=== PATIENT | female | born 1950 | race Caucasian/White ===

== ENCOUNTER → 2020-02-17 08:27 | Outpatient (REF) | payer OTHER, SELFPAY | LOC: ANHLAB 08:27 | PROVIDERS: Visit Provider Nurse Practitioner Family | DX: C44.311 Basal cell carcinoma of skin of nose (principal) | CPT/HCPCS: 88305; 88331 ==

== ENCOUNTER 2021-02-01 09:33 | Outpatient (CLI) | payer OTHER, SELFPAY ==
--- NOTE | ~2021-02-01 | MM_ITS ---
EXAMINATION: MM screening corona BI w angela HISTORY: Screening mammogram TECHNIQUE: Craniocaudal and mediolateral oblique 3-D tomosynthesis images were obtained and synthetic 2-D images were generated. CAD analysis was submitted and interpreted. COMPARISON: No prior mammogram is available for comparison at this institution. BREAST PARENCHYMAL COMPOSITION: There are scattered areas of fibroglandular density. FINDINGS: There is no evidence of suspicious mass, calcification, or architectural distortion to sugg est malignancy in either breast. There has been no suspicious interval change. IMPRESSION: 1. No mammographic evidence of malignancy. 2. Recommend routine screening mammography in one year. BI-RADS Category 1: Negative Reviewed, dictated and finalized at location A.
== END 2021-02-01 09:34 | disposition home or self-care (01) ==
LOC: ANHIMG 09:40
DX: Z12.31 Encounter for screening mammogram for malignant neoplasm of breast (principal)
CPT/HCPCS: 77063; 77067

== ENCOUNTER 2021-02-17 02:33 | Day surgery (SDC) | payer OTHER, SELFPAY ==
[2021-02-08 13:16] VITALS: BMI 32.1
--- NOTE | 2021-02-17 07:09 | PM.HPGS ---
History of Present Illness History of Present Illness Consent: Risks, benefits, and alternatives have been discussed and questions answered. Patient agrees to proceed with procedure. Chief complaint: neoplasm screening Narrative: Ludy Paulino is a 70 year old female referred for colon cancer screening Review of Systems Review of Systems: All systems reviewed & are unremarkable except as noted in HPI and below PMFSH Past Medical History Medical History Coronary artery disease Hyperlipidemia Hypertension Hypothyroid Osteoarthritis Surgical History Surgical History Stented coronary artery Family History Family History Father Cerebrovascular accident Lung cancer Mother Lung cancer Social History Social History Smoking status: Never smoker Alcohol intake: current Alcohol use details: socially Substance use: never Substance use type: does not use Living arrangements: alone Gender identity (if verbalized by the patient): Female Spiritual care concerns: No Meds Home Medications and Allergies Home Medications Medication Instructions Recorded Confirmed Type Vitamin D 50,000 units PO WEEKLY 02/17/20 02/17/21 History amlodipine 5 mg tablet 5 mg PO DAILY 02/17/20 02/17/21 History aspirin 81 mg tablet,delayed 81 mg PO DAILY 02/17/20 02/17/21 History release atorvastatin 40 mg tablet 40 mg PO DAILY 02/17/20 02/17/21 History docusate sodium 50 mg capsule 50 mg PO DAILY 02/17/20 02/17/21 History levothyroxine 75 mcg capsule 75 mcg PO DAILY 02/17/20 02/17/21 History lisinopril 20 mg tablet 20 mg PO DAILY 02/17/20 02/17/21 History metoprolol tartrate 25 mg tablet 25 mg PO DAILY 02/17/20 02/17/21 History multivitamin 1 tablet PO DAILY 02/17/20 02/17/21 History carbidopa-levodopa [Sinemet] 1 tablet PO TID 02/08/21 02/17/21 History tolterodine [Detrol] 4 mg PO DAILY 02/08/21 02/17/21 History Allergies Allergy/AdvReac Type Severity Reaction Status Date / Time codeine Allergy Other Verified 02/17/21 09:11 Penicillins Allergy Swelling Verified 02/17/21 09:11 Exam Resp: Auscultation: clear to auscultation bilaterally Cardio: Rate: regular rate Rhythm: regular rhythm GI: GI Palp: Yes Soft to palpation and No Tenderness to palpation present (GI) Assessment and Plan Assessment and plan (1) Colon cancer screening: Code(s): Z12.11 - Encounter for screening for malignant neoplasm of colon Status: Acute Assessment and Plan: Colonoscopy with possible biopsy or polypectomy or cautery or injection of substances.
[2021-02-17 09:12] VITALS: BP 139/80; PULSE 63; RESP 16; TEMP 36.1; O2SAT 100
--- NOTE | 2021-02-17 09:20 | WPDANESEPPF ---
Anes - Initial Pre Proc Eval Procedure: Operation Date: 02/17/21 10:00 Proposed Procedures p Screening Colonoscopy - Aniceto Terrazas MD Date/Time: 02/17/21 09:20 Surgeon: Aniceto Terrazas MD Pre Op Diagnosis: neoplasm screening Patient Data Age: 70 Gender: F Height: 1.55 m Weight: 75 kg Last Vital Signs Temp 36.1 C L 02/17/21 09:12 Pulse 63 02/17/21 09:12 Resp 16 02/17/21 09:12 BP 139/80 02/17/21 09:12 Pulse Ox 100 02/17/21 09:12 Allergies Allergy/AdvReac Type Severity Reaction Status Date / Time codeine Allergy Other Verified 02/17/21 09:11 Penicillins Allergy Swelling Verified 02/17/21 09:11 Home Medications Medication Instructions Recorded Confirmed Type Vitamin D 50,000 units PO WEEKLY 02/17/20 02/08/21 History amlodipine 5 mg tablet 5 mg PO DAILY 02/17/20 02/08/21 History aspirin 81 mg tablet,delayed 81 mg PO DAILY 02/17/20 02/08/21 History release atorvastatin 40 mg tablet 40 mg PO DAILY 02/17/20 02/08/21 History docusate sodium 50 mg capsule 50 mg PO DAILY 02/17/20 02/08/21 History levothyroxine 75 mcg capsule 75 mcg PO DAILY 02/17/20 02/08/21 History lisinopril 20 mg tablet 20 mg PO DAILY 02/17/20 02/08/21 History metoprolol tartrate 25 mg tablet 25 mg PO DAILY 02/17/20 02/08/21 History multivitamin 1 tablet PO DAILY 02/17/20 02/08/21 History carbidopa-levodopa [Sinemet] 1 tablet PO TID 02/08/21 02/08/21 History tolterodine [Detrol] 4 mg PO DAILY 02/08/21 02/08/21 History Patient hx anesthesia problems: none Family hx anesthesia problems: none PMFSH Past Medical History Medical History Coronary artery disease Hyperlipidemia Hypertension Hypothyroid Osteoarthritis Surgical History Surgical History Stented coronary artery Family History Family History Father Cerebrovascular accident Lung cancer Mother Lung cancer Social History Social History Smoking status: Never smoker Alcohol intake: current Alcohol use details: socially Substance use: never Substance use type: does not use Living arrangements: alone Gender identity (if verbalized by the patient): Female Spiritual care concerns: No Anes - Eval Final PreProcedure Day of Procedure 02/17/21 09:20 Patient weight: obese Heart: regular rate and rhythm Lungs: clear to auscultation Airway: Mallampati scale class II Neurological: alert and oriented Last oral intake: >/= 8 hours ASA classification: III Emergent: no Anesthetic plan: proceed Anesthesia type and monitoring: general GIVS and standard monitoring Informed Consent: The patient's anesthetic plan and its attendant risks and benefits were discussed with the patient/family/POA. Questions were solicited and answers provided to the satisfaction of the patient/family/POA.
[2021-02-17] MEDS: LACTATED RINGERS 1,000 ML 150 ML IV CONT (09:26)
[2021-02-17 10:04] VITALS: BP 94/59; PULSE 57; RESP 18; O2SAT 97
[2021-02-17 10:14] VITALS: BP 97/57; PULSE 56; RESP 12; O2SAT 96
[2021-02-17 10:24] VITALS: BP 117/75; PULSE 58; RESP 12; O2SAT 99
== END 2021-02-17 10:40 | disposition home or self-care (01) ==
PROVIDERS: Visit Provider Internal Medicine Gastroenterology
PROC: 0DJD8ZZ Inspection of Lower Intestinal Tract, Via Natural or Artificial Opening Endoscopic (ICD-10-PCS; CPT 45378; principal; 2021-02-17 10:00)
DX: Z12.11 Encounter for screening for malignant neoplasm of colon (principal); I25.10 Atherosclerotic heart disease of native coronary artery without angina pectoris; E78.5 Hyperlipidemia, unspecified; I10 Essential (primary) hypertension; E03.9 Hypothyroidism, unspecified; M19.90 Unspecified osteoarthritis, unspecified site
CPT/HCPCS: G0121; J2704; J7120

== ENCOUNTER 2023-08-12 13:03 | Outpatient (CLI) | payer OTHER, SELFPAY ==
--- NOTE | ~2023-08-12 | MM_ITS ---
EXAMINATION: MM screening corona BI w angela HISTORY: Screening mammogram TECHNIQUE: Craniocaudal and mediolateral oblique 3-D tomosynthesis images were obtained and synthetic 2-D images were generated. CAD analysis was submitted and interpreted. COMPARISON: 02/01/2021 BREAST PARENCHYMAL COMPOSITION: The breasts are almost entirely fatty. FINDINGS: No suspicious mass, calcification, or architectural distortion are identified in either josie ast to suggest malignancy. There has been no suspicious interval change. IMPRESSION: 1. No mammographic evidence of malignancy. 2. Recommend routine screening mammography in one year. BI-RADS Category 1: Negative Reviewed, dictated and finalized at location A. N [employer]NAGER
== END 2023-08-12 13:04 | disposition home or self-care (01) ==
LOC: ANHIMG 13:06
DX: Z12.31 Encounter for screening mammogram for malignant neoplasm of breast (principal)
CPT/HCPCS: 77063; 77067

== ENCOUNTER 2024-01-09 06:59 | Emergency (ER) | payer OTHER, SELFPAY ==
--- NOTE | ~2024-01-09 | CT_ITS ---
EXAMINATION: CT abdomen pelvis w con DATE: 01/09/2024 07:42 INDICATION: Gastrointestinal hemorrhage. TECHNIQUE: Computed tomography (CT) of the abdomen and pelvis was performed with 100 mL Omnipaque 350 intravenous contrast. Automated exposure control and iterative reconstruction technique were employe d. The dose-length product was 429.56 mGy-cm. COMPARISON: None. FINDINGS: The visualized portions of the lung bases demonstrate mild atelectasis. No pleural effusion . The heart size is normal. No pericardial effusion. There are coronary artery calcifications. There are calcifications of the aortic valve. The liver, gallbladder, spleen, pancreas, and adrenal glands are normal. There are cysts in the kidneys measuring up to 12 mm on the left. There is wall thickenin g of the transverse colon and descending colon with surrounding fat stranding, consistent with coliti s. There are no dilated loops of bowel. The appendix is not visualized. There are no pathologically e nlarged lymph nodes. There is trace pelvic ascites. There is no significant stenosis of celiac axis, superior mesenteric artery, or inferior mesenteric artery. There is severe lumbar spondylosis. IMPRESSION: 1. Colitis involving the transverse and descending colon. Reviewed, dictated and finalized at location E.
[2024-01-09 07:02] VITALS: BP 116/76; PULSE 79; RESP 15; TEMP 36.5; O2SAT 97
[2024-01-09 07:20] LABS: Basophils Percent Auto 0.3 % (0.2-1.2); Eosinophils Percent Auto 0.3 % (0-4.4); Hematocrit 41.1 % (37.0-47.0); Immature Granulocyte Absolute 0.06 K/mm3 (0.00-0.031); Immature Granulocyte Percent A 0.5 % (0-0.5); Lymphocytes Absolute Auto 1.86 K/mm3 (0.9-3.2); Lymphocytes Percent Auto 16.1 % (18.3-44.2); Mean Corpuscular HGB Conc 34.1 g/dl (32-36); Mean Corpuscular Hemoglobin 32.3 pg (26-34); Mean Corpuscular Volume 94.7 fl (80-100); Mean Platelet Volume 10.3 fl (7.4-10.4); Monocytes Absolute Auto 0.8 K/mm3 (0.1-0.6); Monocytes Percent Auto 6.7 % (2.6-8.5); Neutrophils Absolute Auto 8.8 K/mm3 (1.3-6.7); Neutrophils Percent Auto 76.1 % (45.5-73.1); Platelet Count Result 264 k/mm3 (150-375); Red Blood Count 4.34 M/mm3 (4.2-5.4); Red Cell Distribution Width 12.5 % (11.5-14.5); White Blood Count 11.6 K/mm3 (4.5-10.0)
[2024-01-09 07:21] VITALS: BP 127/77; PULSE 76; RESP 14; O2SAT 96
[2024-01-09 07:30] LABS: Alanine Aminotransferase 16 U/L (6-35); Albumin Level 4.4 g/dL (3.5-5.1); Alkaline Phosphatase 96 U/L (38-126); Anion Gap 11 mmol/L (4-12); Aspartate Amino Transferase 22 U/L (14-36); Bilirubin,Total 1.2 mg/dL (0.2-1.3); Blood Urea Nitrogen 36 mg/dL (7-17); Calcium 9.9 mg/dL (8.4-10.2); Carbon Dioxide 20 mmol/L (22-30); Chloride 107 mmol/L (98-107); Estimated CRCL calculation 31 ml/min; Estimated Glomerular Filt Rate 40; Glucose 161 mg/dL (65-110); Potassium 4.1 mmol/L (3.4-5.0); Sodium 138 mmol/L (137-145)
[2024-01-09 07:31] LABS: Partial Thromboplastin Time 23.9 Seconds (22.3-36.8); Prothrombin Time 13.9 Seconds (11.1-14.7)
[2024-01-09] MEDS: SODIUM CHLORIDE 0.9% IV 1,000 ML 999 ML IV CONT (07:45)
--- NOTE | 2024-01-09 08:26 | ED.GENADULT ---
HPI - General Adult General Chief complaint: GI Bleed Stated complaint: rectal bleeding, a lot Time Seen by Provider: 01/09/24 07:10 History of Present Illness HPI narrative: patient is a 70-year-old female who presents emergency department with chief complaint of abdominal discomfort nausea diarrhea the patient reports that she started having some abdominal discomfort yesterday started having some loose stools and then noticed that she had blood in her diarrhea. The patient reports that the symptoms were not improved by anything denies fever reports that she feels nauseated. The patient reports prior surgical history significant for a hysterectomy Related Data Home Medications Medication Instructions Recorded Confirmed Vitamin D 50,000 units PO WEEKLY 02/17/20 02/17/21 amlodipine 5 mg tablet (Norvasc) 5 mg PO DAILY 02/17/20 02/17/21 aspirin 81 mg tablet,delayed 81 mg PO DAILY 02/17/20 02/17/21 release (Adult Low Dose Aspirin) atorvastatin 40 mg tablet (Lipitor) 40 mg PO DAILY 02/17/20 02/17/21 docusate sodium 50 mg capsule 50 mg PO DAILY 02/17/20 02/17/21 (Stool Softener) levothyroxine 75 mcg capsule 75 mcg PO DAILY 02/17/20 02/17/21 lisinopril 20 mg tablet 20 mg PO DAILY 02/17/20 02/17/21 metoprolol tartrate 25 mg tablet 25 mg PO DAILY 02/17/20 02/17/21 multivitamin 1 tablet PO DAILY 02/17/20 02/17/21 carbidopa 10 mg-levodopa 100 mg 1 tablet PO TID 02/08/21 02/17/21 tablet (Sinemet) tolterodine 2 mg tablet (Detrol) 4 mg PO DAILY 02/08/21 02/17/21 Allergies Allergy/AdvReac Type Severity Reaction Status Date / Time codeine Allergy Other Verified 02/17/21 09:11 Penicillins Allergy Swelling Verified 02/17/21 09:11 Review of Systems Review of Systems: A 10 system review of systems was completed on the patient and is negative except for what is stated in the HPI. Nursing and ancillary documentation was reviewed. [facility] Past Medical History Medical History Coronary artery disease Hyperlipidemia Hypertension Hypothyroid Osteoarthritis Surgical History Surgical History Stented coronary artery Family History Family History Father Cerebrovascular accident Lung cancer Mother Lung cancer Social History Social History Smoking status: Never smoker Alcohol intake: current Alcohol use details: socially Substance use: never Substance use type: does not use Living arrangements: alone Gender identity (if verbalized by the patient): Female Spiritual care concerns: No Exam Narrative: GENERAL: Well-appearing, well-nourished, and in no acute distress. HEAD: Normocephalic, atraumatic. EYES: PERRLA and EOMI. ENT: Nares clear, no rhinorrhea or epistaxis. Mucous membranes moist. NECK: Supple. CHEST: Clear to auscultation. No respiratory distress. HEART: Regular rate and rhythm. No murmur heard. Normal peripheral pulses. ABDOMEN: Soft, mild tenderness to palpation lower quadrant, nondistended, normal active bowel sounds. : Guaiac-positive stool EXTREMITIES: Normal range of motion. No edema. SKIN: Warm, dry, no rash. NEURO: No focal deficits. Alert and oriented x3. PSYCH: Normal mood and affect. Course Vital Signs Vital signs: Vital Signs Temperature 36.5 C 01/09/24 07:02 Pulse Rate 79 01/09/24 07:02 Respiratory Rate 15 01/09/24 07:02 Blood Pressure 116/76 01/09/24 07:02 Pulse Oximetry 97 01/09/24 07:02 Oxygen Delivery Room Air 01/09/24 07:02 Temperature 36.5 C 01/09/24 07:02 Pulse Rate 76 01/09/24 07:21 Respiratory Rate 14 01/09/24 07:21 Blood Pressure 127/77 01/09/24 07:21 Pulse Oximetry 96 01/09/24 07:21 Oxygen Delivery Room Air 01/09/24 07:02 Medical Decision Kellie
[2024-01-09 08:44] VITALS: BP 125/69; PULSE 73; RESP 14; O2SAT 100
[2024-01-09] MEDS: CIPROFLOXACIN 500 MG TAB PO (08:44)
[2024-01-09] MEDS: metroNIDAZOLE 500 MG TABLET PO (08:44)
[2024-01-09 09:33] VITALS: BP 144/77; PULSE 68; RESP 14; TEMP 37; O2SAT 99
== END 2024-01-09 09:36 | disposition home or self-care (01) ==
PROVIDERS: Emergency Provider Emergency Medicine
DX: K52.9 Noninfective gastroenteritis and colitis, unspecified (principal); I25.10 Atherosclerotic heart disease of native coronary artery without angina pectoris; I10 Essential (primary) hypertension; E78.5 Hyperlipidemia, unspecified; E03.9 Hypothyroidism, unspecified; M19.90 Unspecified osteoarthritis, unspecified site; Z79.899 Other long term (current) drug therapy; Z79.82 Long term (current) use of aspirin
CPT/HCPCS: 36415; 74177; 80053; 83605; 85025; 85610; 85730; 86850; 86900; 86901; 96360; 99284; A9270; J7030; Q9967

== ENCOUNTER 2024-01-20 11:40 | Outpatient (CLI) | payer OTHER, SELFPAY ==
[2024-01-20 13:02] LABS: Toxigenic C. Diff NEGATIVE (NEGATIVE)
== END 2024-01-20 11:41 | disposition home or self-care (01) ==
LOC: ANHLAB 11:42
PROVIDERS: Visit Provider Nurse Practitioner Family
DX: K52.9 Noninfective gastroenteritis and colitis, unspecified (principal)
CPT/HCPCS: 87045; 87177; 87209; 87269; 87427; 87449; 87493

== ENCOUNTER 2024-10-07 10:00 | Outpatient (RCR) | payer OTHER, SELFPAY ==
[2024-06-19 08:45] VITALS: BP 128/70; PULSE 70
[2024-06-19 09:04] VITALS: PULSE 70
== END 2024-10-07 11:15 | disposition home or self-care (01) ==
LOC: ANHCPREHAB 10:00
DX: Z95.2 Presence of prosthetic heart valve (principal)
CPT/HCPCS: 93798